=== PATIENT | female | born 1990 | race Caucasian/White ===

== ENCOUNTER 2016-12-28 06:47 | Emergency (ER) | payer OTHER ==
[2016-12-28 07:00] VITALS: TEMP 98.1
--- NOTE | 2016-12-28 07:06 | EDPHY ---
H & P Stated Complaint: ITCHY AND THIS AM DIFF HEARING R EAR AND R SIDE FACE NUMB Time Seen by Provider: 12/28/16 07:04 HPI/ROS: CHIEF COMPLAINT: Possible allergic reaction HISTORY OF PRESENT ILLNESS: This patient is a 26 y/o female complaining of generalized itchiness and right- sided facial swelling and numbness onset around 5am this morning. She woke up feeling itchy all over, warm, and uncomfortable. At first, she thought maybe it was due to dry skin, but the itching spread to her scalp, which is unusual for her. She felt that her right ear was plugged up, then noted that the whole right side of her face seemed numb and swollen. She feels her lips are slightly swollen as well. The facial swelling and numbness have mainly resolved. She denies any history of allergic reaction. No unusual foods, new lotions, or new detergents. She did not note any oral swelling or difficulty breathing. She feels her symptoms have resolved slightly since onset. REVIEW OF SYSTEMS: A 10 point review of systems was performed and is negative with the exception of the elements mentioned in the history of present illness. - Personal History Current Tetanus/Diphtheria Vaccine: Yes Current Tetanus Diphtheria and Acellular Pertussis (TDAP): Yes - Medical/Surgical History PMH: Denies. Hx Asthma: No Hx Chronic Respiratory Disease: No Hx Diabetes: No Hx Cardiac Disease: No Hx Renal Disease: No Hx Cirrhosis: No Hx Alcoholism: No Hx HIV/AIDS: No Hx Splenectomy or Spleen Trauma: No - Social History Smoking Status: Light smoker Additional Social History: Lives by herself in [place]. Occasional tobacco use. Single. - Physical Exam Exam: General Appearance: Alert, no distress Eyes: Pupils equal and round, no periorbital swelling ENT, Mouth: Swelling to both pinna, rt greater than left. Mucous membranes moist , no oral swelling Neck: Normal inspection, no stridor Respiratory: Lungs are clear to auscultation, no wheezing Cardiovascular: Regular rate and rhythm Neurological: A&O, nonfocal, normal gait Skin: Hives on scalp, upper chest and upper back Extremities: No swelling Psychiatric: Mood and affect normal Constitutional: Initial Vital Signs Temperature (C) 36.7 C 12/28/16 06:58 Heart Rate 86 12/28/16 06:58 Respiratory Rate 18 12/28/16 06:58 Blood Pressure 151/112 H 10/10/17 06:58 O2 Sat (%) 98 12/28/16 06:58 O2 Delivery Mode Room Air Allergies/Adverse Reactions: No Known Allergies Allergy (Unverified 12/28/16 06:57) Home Medications: Medication Instructions Recorded EPINEPHRINE [EPIPEN] 0.3 mg IM ONCE #2 syr 12/28/16 predniSONE 40 mg PO DAILY #6 tab 12/28/16 Medical Decision Making ED Course/Re-evaluation: 26 y/o female presents with an allergic reaction noted around 5am, two hours prior to arrival. Exam reveals hives on her scalp, upper chest and upper back. Swelling to both pinna. No oral swelling, no wheezes. Plan to administer 25mg PO Benadryl and 60mg PO Prednisone for symptom relief. Plan to discharge home in good condition. Follow up and return precautions discussed. The patient will receive an EpiPen for future severe reaction. She is comfortable with this plan. Differential Diagnosis: Differential diagnosis includes though it is not limited to laryngeal edema, bronchospasm, hypotension, angioedema. - Data Points Medications Given: Discontinued Medications Diphenhydramine HCl (Benadryl) 25 mg PO EDNOW ONE Stop: 12/28/16 07:32 Last Admin: 12/28/16 07:56 Dose: 25 mg Prednisone (Prednisone) 60 mg PO EDNOW ONE Stop: 12/28/16 07:32 Last Admin: 12/28/16 07:57 Dose: 60 mg Departure - Departure Disposition: Home, Routine, Self-Care Clinical Impression: Allergic reaction Qualifiers: Encounter type: initial encounter Qualified Code(s): T78.40XA - Allergy, unspecified, initial encounter Condition: Good Instructions: Epinephrine (By injection), General Allergic Reaction (ED) Additional Instructions: 1. Take Claritin in the day and Benadryl at night for the next three days. 2. Take Prednisone as prescribed. 3. Follow up with your primary care physician for continued evaluation. When symptoms have completely subsided, follow up with an hand driller to try to determine the cause of your reaction. 4. Use your Epi Pen as prescribed as needed for severe allergic reaction including shortness of breath, dizziness, oral or airway swelling, or other symptoms as described in the attached instructions. 5. Return to the emergency department for shortness of breath, difficulty swallowing, difficulty breathing, worsening of rash, fever or other worsening of condition. Referrals: Nima Ashby MD [Medical Doctor] - As per Instructions Prescriptions: EPINEPHRINE [EPIPEN] 0.3 mg IM ONCE #2 syr predniSONE 40 mg PO DAILY #6 tab Report Scribed for: Poppy Nelson Report Scribed by: Sugar Fermin Date of Report: 12/28/16 Time of Report: 07:06 Physician Review and Approval Statement: 12/28/16 07:06 Portions of this note were transcribed by a medical van driver. I personally performed a history, physical exam, medical decision making, and confirmed accuracy of information the transcribed note.
[2016-12-28] MEDS ORDERED: predniSONE 20 MG TAB PO ONE (07:31)
[2016-12-28] MEDS ORDERED: diphenhydrAMINE 25 MG CAP PO ONE (07:31)
[2016-12-28 08:04] VITALS: BP 109/76; PULSE 81; RESP 15; O2SAT 97
== END 2016-12-28 08:03 | disposition home or self-care (01) ==
DX: T78.40XA Allergy, unspecified, initial encounter (principal); F17.200 Nicotine dependence, unspecified, uncomplicated

== ENCOUNTER 2018-03-18 18:27 | Emergency (ER) | payer OTHER ==
[2018-03-18] MEDS ORDERED: EPINEPHrine 1 MG/ML INJ IM ONE (18:35)
[2018-03-18] MEDS ORDERED: RANITIDINE 50 MG/2 ML VIAL IVP ONE (18:35)
[2018-03-18] MEDS ORDERED: methylPREDNISolone SOD SUCC 125 MG/2 ML VIAL IVP ONE (18:35)
--- NOTE | 2018-03-18 18:41 | EDPHY ---
H & P Stated Complaint: allergic reaction with change in voice and facial swelling Time Seen by Provider: 03/18/18 18:28 - Personal History LMP (Females 10-55): Now Current Tetanus/Diphtheria Vaccine: No - Medical/Surgical History Hx Asthma: No Hx Chronic Respiratory Disease: No Hx Diabetes: No Hx Cardiac Disease: No Hx Renal Disease: No Hx Cirrhosis: No Hx Alcoholism: No Hx HIV/AIDS: No Hx Splenectomy or Spleen Trauma: No Other PMH: none - Social History Smoking Status: Light smoker Constitutional: Initial Vital Signs Temperature (C) 36.7 C 03/18/18 18:29 Heart Rate 85 03/18/18 18:29 Respiratory Rate 16 03/18/18 18:29 Blood Pressure 161/76 H 03/18/18 18:29 O2 Sat (%) 98 03/18/18 18:29 O2 Delivery Mode Room Air Allergies/Adverse Reactions: No Known Allergies Allergy (Unverified 03/18/18 18:33) Home Medications: Medication Instructions Recorded Famotidine [Pepcid 20 MG (OTC)] 20 mg PO DAILY #7 tab 03/18/18 predniSONE 40 mg PO DAILY #10 tab 03/18/18 Medical Decision Making ED Course/Re-evaluation: CHIEF COMPLAINT: Allergic reaction. HISTORY OF PRESENT ILLNESS: This patient is a 27 year old female who presents with acute allergic reaction of unknown etiology. She works at [employer] and was having a staff meal for dinner this evening with coworkers which included an unusual herbal iced tea. About 30 minutes after this, she developed facial swelling, generalized erythema, a pruritic rash, and noted changes in her vocal quality. Her coworker brought her immediately to the emergency department. She denies any known food allergies. She denies any difficulty breathing or swallowing. No vomiting or diarrhea. No other recent illness. No fever, chest pain, shortness of breath, headache, lightheadedness, or other associated symptoms. REVIEW OF SYSTEMS: A comprehensive 10 system review of systems is otherwise negative aside from elements mentioned in the history of present illness and medical decision making. PHYSICAL EXAM: HR, BP, O2 Sat, RR. Temp noted General Appearance: Alert, well hydrated, appropriate, and non-toxic appearing. Head: Facial swelling and erythema. Atraumatic without scalp tenderness or obvious injury Eyes: Pupils equal, round, reactive to light and accommodation, EOMI, no trauma , no injection. Ears: Clear bilaterally, no perforation, normal landmarks Nose: Atraumatic, no rhinorrhea, clear. Throat: No airway swelling or obstruction. There is no erythema or exudates, no lesions, normal tonsils, mucus membranes moist. Neck: Supple, nontender, no lymphadenopathy. Respiratory: No retractions, no distress, no wheezes, and no accessory muscle use. Lungs are clear to auscultation bilaterally. Cardiovascular: Regular rate and rhythm, no murmurs, rubs, or gallops. Bilateral carotid, radial, dorsalis pedis, and posterior tibial pulses intact. Good capillary refill all extremities. Gastrointestinal: Abdomen is soft, nontender, non-distended. Musculoskeletal: Normal active ROM of all extremities, atraumatic. Neurological: Alert, appropriate, and interactive. Nonfocal neuro exam. Skin: Generalized erythema, pruritic. Good turgor, no nodules on palpation. Past medical history: Denies. Past surgical history: Noncontributory Family history: Noncontributory Social history: Employed. Friend at bedside. Does not abuse tobacco, drugs, or alcohol. DIFFERENTIAL DIAGNOSIS: The differential diagnosis included but was not limited to angioedema, anaphylaxis, anaphylactoid reaction, urticarial reaction, and other infectious causes for skin rash. MEDICAL DECISION MAKIN:28 Met patient on arrival. 27 y/o female presents with acute allergic reaction of unknown etiology. Patient has facial swelling without airway involvement and generalized erythema with pruritic rash on exam. No oropharyngeal swelling, no wheezing or airway difficulties. Patient does not report any shortness of breath. Plan to administer 0.3mg IM Epinephrine, 125mg IV Solu-Medrol, 50mg IV Zantac, and 50mg IV Benadryl for symptom relief. Plan to observe patient here in the emergency department. Reassessed patient. She is feeling much better following medication administration. Reassessed patient. She continues to feel well. Plan to discharge home in good condition with prescription for Prednisone and Pepcid. She will follow up with an chuck wagon driver for further evaluation. Follow up and return precautions discussed. The patient is comfortable with this plan. - Data Points Medications Given: Discontinued Medications Diphenhydramine HCl (Benadryl Injection) 50 mg IVP EDNOW ONE Stop: 03/18/18 18:36 Last Admin: 03/18/18 18:43 Dose: 50 mg Epinephrine HCl (Epinephrine) 0.3 mg IM EDNOW ONE Stop: 03/18/18 18:36 Last Admin: 03/18/18 18:41 Dose: 0.3 mg Methylprednisolone Sodium Succinate (Solu-Medrol) 125 mg IVP EDNOW ONE Stop: 03/18/18 18:36 Last Admin: 03/18/18 18:43 Dose: 125 mg Ranitidine HCl (Zantac) 50 mg IVP EDNOW ONE Stop: 03/18/18 18:36 Last Admin: 03/18/18 18:43 Dose: 50 mg Departure - Departure Disposition: Home, Routine, Self-Care Clinical Impression: Allergic reaction Qualifiers: Encounter type: initial encounter Qualified Code(s): T78.40XA - Allergy, unspecified, initial encounter Acute anaphylaxis Qualifiers: Encounter type: initial encounter Qualified Code(s): T78.2XXA - Anaphylactic shock, unspecified, initial encounter Condition: Good Instructions: Anaphylaxis (ED), General Allergic Reaction (ED) Additional Instructions: Follow-up with your primary doctor within 72 hours. Take Prednisone and Pepcid as prescribed. Use [id number] Benadryl as directed for itching. Return to the Emergency Department for shortness of breath, difficulty swallowing, difficulty breathing, worsening of rash, fever or other worsening of condition. When symptoms have completely subsided, follow up with an chuck wagon driver soon as possible to determine the cause of the allergic reaction. Referrals: GERA GRAY [Primary Care Provider] - As per Instructions Sb Dowling MD [Medical Doctor] - As per Instructions Prescriptions: Famotidine [Pepcid 20 MG (OTC)] 20 mg PO DAILY #7 tab predniSONE 40 mg PO DAILY #10 tab Report Scribed for: Zhen Mccain Report Scribed by: Sugar Fermin Date of Report: 03/18/18 Time of Report: 18:40
[2018-03-18 19:42] VITALS: BP 117/66
[2018-03-18] MEDS ORDERED: SODIUM CL 0.9% 20 ML VIAL ONE (20:13)
[2018-03-18] MEDS ORDERED: RANITIDINE 50 MG/2 ML VIAL ONE (20:13)
[2018-03-18] MEDS ORDERED: EPINEPHrine KIT (USE FOR EPIPEN) 1 MG/ML IM ONE (20:13)
[2018-03-18] MEDS ORDERED: methylPREDNISolone SOD SUCC 125 MG/2 ML VIAL ONE (20:13)
== END 2018-03-18 19:42 | disposition home or self-care (01) ==
DX: T78.2XXA Anaphylactic shock, unspecified, initial encounter (principal); T78.40XA Allergy, unspecified, initial encounter
CPT/HCPCS: 96374; J0171; J1200; J2780; J2930